=== PATIENT | female | born 1980 | race American Indian/Alaskan Native ===

== ENCOUNTER 2019-11-06 17:23 | Emergency (ER) | payer SELFPAY ==
[2019-11-06 18:17] VITALS: BP 129/78
[2019-11-06 18:43] LABS: Basophils % (Auto) 0.4 % (0.0-1.8); Eosinophils # (Auto) 0.1 K/mm3 (0.0-0.4); Eosinophils % (Auto) 1.3 % (0.0-4.3); Hematocrit 29.4 % (30.3-42.9); Hemoglobin 9.5 gm/dl (10.1-14.3); Lymphocytes # (Auto) 1.8 K/mm3 (1.2-5.4); Lymphocytes % (Auto) 23.7 % (13.4-35.0); Mean Corpuscular HGB Conc 32 % (30-34); Mean Corpuscular Volume 72 fl (79-97); Monocytes # (Auto) 0.7 K/mm3 (0.0-0.8); Monocytes % (Auto) 8.7 % (0.0-7.3); Platelet Count 352 K/mm3 (140-440); Red Cell Distribution Width 19.8 % (13.2-15.2)
[2019-11-06 19:00] LABS: Alanine Aminotransferase 14 units/L (7-56); Albumin 3.7 g/dL (3.9-5); Blood Urea Nitrogen 7 mg/dL (7-17); Calcium 8.6 mg/dL (8.4-10.2); Hemolysis Index 2
[2019-11-06 19:03] LABS: BUN/Creatinine Ratio 10
--- NOTE | 2019-11-06 20:32 | Emergency Department Report ---
ED Female HPI - General Chief complaint: Vaginal Bleeding Stated complaint: HEAVY BLEEDING Time Seen by Provider: 11/06/19 20:16 Source: patient Mode of arrival: Ambulatory Limitations: No Limitations - History of Present Illness Initial comments: 39-year-old -[place] female presents to the emergency room for heavy vaginal bleeding since Saturday. Patient states that she is passing blood clots today. Patient reports that she is currently on control of Levora patient denies any abdominal pain no urinary urgency or frequency. MD Complaint: vaginal bleeding Onset/Timin -: days(s) Are you Now?: No Last Menstrual Period: 11/02/19 EDC: 08/08/20 Associated Symptoms: denies other symptoms - Related Data Allergies Allergy/AdvReac Type Severity Reaction Status Date / Time No Known Allergies Allergy Unverified 11/06/19 18:16 ED Review of Systems ROS: Stated complaint: HEAVY BLEEDING Other details as noted in HPI Comment: All other systems reviewed and negative ED Past Medical Hx - Past Medical History Previous Medical History?: No - Surgical History Past Surgical History?: No - Social History Smoking Status: Never Smoker ED Physical Exam - General Limitations: No Limitations General appearance: alert, in no apparent distress - Head Head exam: Present: atraumatic, normocephalic - Eye Eye exam: Present: normal appearance - ENT ENT exam: Present: mucous membranes moist - Neck Neck exam: Present: normal inspection, full ROM - Back Exam Back exam: Present: normal inspection, full ROM - Neurological Exam Neurological exam: Present: alert, oriented X3 - Psychiatric Psychiatric exam: Present: normal affect, normal mood - Skin Skin exam: Present: warm, dry, intact, normal color. Absent: rash ED Course Vital Signs 11/06/19 18:12 Temperature 98.8 F Pulse Rate 78 Respiratory 18 Rate Blood Pressure 129/78 O2 Sat by Pulse 99 Oximetry ED Medical Decision Making - Lab Data Result diagrams: 11/06/19 18:27 11/06/19 18:27 - Medical Decision Making 39-year-old -[place] female presents to the emergency room for heavy vaginal bleeding since Saturday. Patient states that she is passing blood clots today. Patient reports that she is currently on control of Levora patient denies any abdominal pain no urinary urgency or frequency. Patient has a stable H&H. Discussed with patient she needs to follow-up with the [facility]ING MACHINE TENDER I will refer her to [facility]. I did recommend [id number] multivitamins with iron. Patient verbalized understanding Critical care attestation.: If time is entered above; I have spent that time in minutes in the direct care o f this critically ill patient, excluding procedure time. ED Disposition Clinical Impression: Menorrhagia with regular cycle Anemia Qualifiers: Anemia type: iron deficiency Iron deficiency anemia type: chronic blood loss Qualified Code(s): D50.0 - Iron deficiency anemia secondary to blood loss (chronic) Disposition: TO HOME OR SELFCARE Is pt being admited?: No Does the pt Need Aspirin: No Condition: Stable Instructions: Menorrhagia (ED) Additional Instructions: Continue with your control. Recommend multivitamin with iron for women. Follow-up with a C[facility]ING MACHINE TENDER. I have listed several below for your convenience. Referrals: PRIMARY CARE [Primary Care Provider] - 3-5 Days [facility] [Provider Group] - 3-5 Days [facility] [place] [Outside] - 3-5 Days Forms: Work/School Release Form(ED)
== END 2019-11-06 20:49 | disposition home or self-care (01) ==
LOC: ED 17:23
DX: N92.0 Excessive and frequent menstruation with regular cycle (principal); D64.89 Other specified anemias
CPT/HCPCS: 36415; 80053; 85025; 99283

== ENCOUNTER 2020-09-07 10:18 | Observation (INO) | payer SELFPAY ==
--- NOTE | 2020-09-07 11:01 | Emergency Department Report ---
HPI - General Chief Complaint: Dizziness Time Seen by Provider: 09/07/20 10:31 - HPI HPI: Room 20 The patient is a 40-year-old female present with chief complaint of near syncope. 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 Patient subsequently went down to minimize and a coworker saw her to help her up to sit down in a chair. Patient states she never lost consciousness. Patient states she had an episode of nausea vomiting and her dizziness subsided after 10 minutes. Patient denied ever having palpitations or chest pain. Patient admits to feeling some shortness of breath constantly for the past 2 months after being diagnosed with Covid. Patient denies cough or fever or history of diarrhea. 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 Patient states the symptoms last approximately 10 minutes and then resolved. The patient states she did not go to the hospital. Patient currently denies symptoms The patient states for the past 4 months she has had heavy cycles lasting approximately 2 weeks each time. Patient states she goes through approximately 6-10 pads per day during her cycles. ED Past Medical Hx - Past Medical History Previous Medical History?: No - Surgical History Past Surgical History?: No - Family History Family history: no significant - Social History Smoking Status: Never Smoker Substance Use Type: None (Denies illicit drug use) ED Review of Systems ROS: Stated complaint: SYNCOPE Other details as noted in HPI Constitutional: diaphoresis Eyes: denies: eye pain ENT: denies: throat pain Respiratory: shortness of breath. denies: cough Cardiovascular: denies: chest pain, palpitations Endocrine: no symptoms reported Gastrointestinal: nausea, vomiting. denies: abdominal pain Genitourinary: denies: dysuria Musculoskeletal: denies: back pain Neurological: denies: headache Physical Exam - Physical Exam Vital Signs: Vital Signs 09/07/20 10:33 Temperature 98.2 F Pulse Rate 71 Respiratory 18 Rate Blood Pressure 105/56 [Left] O2 Sat by Pulse 100 Oximetry Physical Exam: GENERAL: The patient is well-developed well-nourished female lying on stretcher not appearing to be in acute distress. [] HEENT: Normocephalic. Atraumatic. Extraocular motions are intact. Patient has moist mucous membranes. NECK: Supple. Trachea midline CHEST/LUNGS: Clear to auscultation. There is no respiratory distress noted. HEART/CARDIOVASCULAR: Regular. There is no tachycardia. There is no gallop rub or murmur. ABDOMEN: Abdomen is soft, nontender. Patient has normal bowel sounds. There is no abdominal distention. SKIN: There is no rash. There is no edema. There is no diaphoresis. NEURO: The patient is awake, alert, and oriented. The patient is cooperative. The patient has no focal neurologic deficits. The patient has normal speech. Cranial nerves II through XII grossly intact. GCS 15 MUSCULOSKELETAL: There is no evidence of acute injury. ED Course Vital Signs 09/07/20 10:33 Temperature 98.2 F Pulse Rate 71 Respiratory 18 Rate Blood Pressure 105/56 [Left] O2 Sat by Pulse 100 Oximetry - Consultations Consultation #1: 09/07/20 13:28 [employer] ATTENDANT paged 09/07/20 13:[address] Panda- will give info to Dr. Leon for consultation ED Medical Decision Making - Lab Data Result diagrams: 09/07/20 11:12 09/07/20 11:12 Laboratory Tests 09/07/20 09/07/20 09/07/20 10:45 11:12 11:12 WBC 5.6 RBC 2.68 L Hgb 3.8 L* Hct 14.1 L* MCV 53 L MCH 14 L MCHC 27 L RDW 22.7 H Plt Count 523 H D-Dimer 737.93 H Sodium Potassium Chloride Carbon Dioxide Anion Gap BUN Creatinine Estimated GFR BUN/Creatinine Ratio Glucose POC Glucose 113 H Calcium Magnesium Total Bilirubin AST ALT Alkaline Phosphatase Total Creatine Kinase CK-MB (CK-2) CK-MB (CK-2) Rel Index Troponin T NT-Pro-B Natriuret Pep Total Protein Albumin Albumin/Globulin Ratio TSH Free T4 HCG, Qual 09/07/20 09/07/20 09/07/20 11:12 11:12 11:12 WBC RBC Hgb Hct MCV MCH MCHC RDW Plt Count D-Dimer Sodium 138 Potassium 4.3 Chloride 103.9 Carbon Dioxide 21 L Anion Gap 17 BUN 9 Creatinine 0.5 L Estimated GFR > 60 BUN/Creatinine Ratio 18 Glucose 114 H POC Glucose Calcium 8.9 Magnesium 2.20 Total Bilirubin 0.70 AST 16 ALT < 5 L Alkaline Phosphatase 55 Total Creatine Kinase 70 CK-MB (CK-2) < 1.0 CK-MB (CK-2) Rel Index 1.4 Troponin T < 0.010 NT-Pro-B Natriuret Pep Total Protein 6.2 L Albumin 3.7 L Albumin/Globulin Ratio 1.5 TSH 0.878 Free T4 1.14 HCG, Qual Negative 09/07/20 11:12 WBC RBC Hgb Hct MCV MCH MCHC RDW Plt Count D-Dimer Sodium Potassium Chloride Carbon Dioxide Anion Gap BUN Creatinine Estimated GFR BUN/Creatinine Ratio Glucose POC Glucose Calcium Magnesium Total Bilirubin AST ALT Alkaline Phosphatase Total Creatine Kinase CK-MB (CK-2) CK-MB (CK-2) Rel Index Troponin T NT-Pro-B Natriuret Pep 151.8 Total Protein Albumin Albumin/Globulin Ratio TSH Free T4 HCG, Qual - EKG Data -: EKG Interpreted by Dc EKG shows normal: sinus rhythm Rate: normal - EKG Data When compared to previous EKG there are: previous EKG unavailable Interpretation: other (No ischemic changes seen) - Radiology Data Radiology results: report reviewed (Pelvic ultrasound, CT head), image reviewed (Pelvic ultrasound, CT head) [facility] [address] [place] [address] Ultrasound Report Signed Patient: LUCINDA VALENTIN MR#: [id number] 5 : 1980 Acct:[id number] Age/Sex: 40 / F ADM Date: 09/07/20 Loc: ED Attending Dr: Ordering Physician: HAMLET LINTON MD Date of Service: 09/07/20 Procedure(s): US transvaginal Accession Number(s): [id number] cc: HAMLET LINTON MD ULTRASOUND PELVIS COMPLETE ULTRASOUND TRANSVAGINAL INDICATION / CLINICAL INFORMATION: Dysfunctional uterine bleeding. TECHNIQUE: Transabdominal and Transvaginal. Duplex Color Doppler used: Yes. COMPARISON: None available FINDINGS: UTERUS: Present. - Appearance (if present): The uterus is retroverted and mildly enlarged. There appears to be a large heterogeneous submucosal fibroid in the anterior wall measuring up to 5.3 cm. - Size in cm (if present): 11.0 x 6.0 x 6.8. - Endometrial Complex (if present): The endometrium appears atrophic measuring 2-3 mm. The endometrial stripe is displaced posteriorly by the assumed large fibroid. - Additional findings: None. RIGHT ADNEXA: The right ovary measures 4.1 x 2.8 x 4.1 cm and contains a 2.6 cm simple appearing cyst. Normal color Doppler blood flow. LEFT ADNEXA: The left ovary is unremarkable measuring 5.4 x 1.5 x 2.8 cm. Normal color Doppler blood flow. URINARY BLADDER: No significant abnormality. FREE FLUID: There is a mild degree of free pelvic fluid in the cul-de-sac. ADDITIONAL FINDINGS: None. IMPRESSION: Large submucosal uterine fibroid is suspected in the anterior wall as described. The endometrium appears atrophic. 2.6 cm right ovarian cyst. Signer Name: Yifan Yang Jr, MD Signed: 09/07/2020 1:14 PM Workstation Name: [id number] Transcribed By: TTR Dictated By: YIFAN YAGN JR, MD Electronically Authenticated By: YIFAN YANG JR, MD Signed Date/Time: 09/07/20 1314 DD/ 1309 TD/TT: Print Cancel [facility] [address] [id number] Cat Scan Report Signed Patient: LUCINDA VALENTIN MR#: [id number] 5 : 1980 Acct:[id number] Age/Sex: 40 / F ADM Date: 09/07/20 Loc: ED Attending Dr: Ordering Physician: HAMLET LINTON MD Date of Service: 09/07/20 Procedure(s): CT head/brain wo con Accession Number(s): [id number] cc: HAMLET LINTON MD CT BRAIN: 09/07/2020 INDICATION / CLINICAL INFORMATION: Near syncope. COMPARISON: None available. FINDINGS: BRAIN/INTRACRANIAL STRUCTURES: Unenhanced CT images of the brain demonstrate no evidence of acute intracranial abnormality. Ventricles and sulci are normal in size and shape. There is no evidence of acute large vessel territory ischemic injury, hemorrhage, or mass. There are no abnormal extra- axial fluid collections. Incidental note is made of a 6 mm lucency in the right parietal. Ventricular white matter, most consistent with a prominent perivascula r space. I would consider this to be of unlikely clinical significance. EXTRACRANIAL STRUCTURES: Unremarkable. IMPRESSION: No acute abnormality. All CT scans at this location are performed using dose reduction to ALARA by means of automated exposure control. Signer Name: Tony Stearns MD Signed: 09/07/2020 12:08 PM Workstation Name: [id number] Transcribed By: RYAN Dictated By: Tony Stearns MD Electronically Authenticated By: Tony Stearns MD Signed Date/Time: 09/07/20 1208 DD/ 1206 TD/TT: Print Cancel - Differential Diagnosis Symptomatic anemia, dysrhythmia, PE, ACS, electrolyte imbalance, hypothyroi Critical care attestation.: If time is entered above; I have spent that time in minutes in the direct care of this critically ill patient, excluding procedure time. ED Disposition Clinical Impression: Symptomatic anemia, Dysfunctional uterine bleeding, Near syncope Disposition: OP ADMIT IP TO THIS HOSP Is pt being admited?: Yes Does the pt Need Aspirin: No Condition: Fair Time of Disposition: 13:38 (Hospitalist notified (Dr. Duarte))
[2020-09-07 11:53] LABS: Mean Corpuscular HGB Conc 27 % (30-34); Platelet Count 523 K/mm3 (140-440); Red Blood Count 2.68 M/mm3 (3.65-5.03)
[2020-09-07 11:56] LABS: Hematocrit 14.1 % (30.3-42.9); Hemoglobin 3.8 gm/dl (10.1-14.3); Mean Corpuscular Volume 53 fl (79-97); Red Cell Distribution Width 22.7 % (13.2-15.2)
[2020-09-07] MEDS ORDERED: SODIUM CHLORIDE 0.9% 500 ML 500 ML IV ONE (12:03)
--- NOTE | 2020-09-07 12:13 | Cat Scan Report ---
CT BRAIN: 09/07/2020 INDICATION / CLINICAL INFORMATION: Near syncope. COMPARISON: None available. FINDINGS: BRAIN/INTRACRANIAL STRUCTURES: Unenhanced CT images of the brain demonstrate no evidence of acute int racranial abnormality. Ventricles and sulci are normal in size and shape. There is no evidence of acute large vessel territory ischemic injury, hemorrhage, or mass. There are no abnormal extra-axial fluid collections. Incidental note is made of a 6 mm lucency in the right parietal. Ventricular white matter, most consi stent with a prominent perivascular space. I would consider this to be of unlikely clinical significa nce. EXTRACRANIAL STRUCTURES: Unremarkable. IMPRESSION: No acute abnormality. All CT scans at this location are performed using dose reduction to ALARA by means of automated expos ure control. Signer Name: Tony Stearns MD Signed: 09/07/2020 12:08 PM Workstation Name: [id number]
[2020-09-07 12:23] LABS: Albumin 3.7 g/dL (3.9-5); Blood Urea Nitrogen 9 mg/dL (7-17); Calcium 8.9 mg/dL (8.4-10.2); Hemolysis Index 0
[2020-09-07 12:27] LABS: Free T4 (Free Thyroxine) 1.14 ng/dL (0.76-1.46)
[2020-09-07 12:30] LABS: Alanine Aminotransferase < 5 units/L (7-56); BUN/Creatinine Ratio 18; Creatine Kinase MB < 1.0 ng/mL (0.0-4.0)
--- NOTE | 2020-09-07 13:18 | Ultrasound Report ---
ULTRASOUND PELVIS COMPLETE ULTRASOUND TRANSVAGINAL INDICATION / CLINICAL INFORMATION: Dysfunctional uterine bleeding. TECHNIQUE: Transabdominal and Transvaginal. Duplex Color Doppler used: Yes. COMPARISON: None available FINDINGS: UTERUS: Present. - Appearance (if present): The uterus is retroverted and mildly enlarged. There appears to be a large heterogeneous submucosal fibroid in the anterior wall measuring up to 5.3 cm. - Size in cm (if present): 11.0 x 6.0 x 6.8. - Endometrial Complex (if present): The endometrium appears atrophic measuring 2-3 mm. The endometria l stripe is displaced posteriorly by the assumed large fibroid. - Additional findings: None. RIGHT ADNEXA: The right ovary measures 4.1 x 2.8 x 4.1 cm and contains a 2.6 cm simple appearing cyst . Normal color Doppler blood flow. LEFT ADNEXA: The left ovary is unremarkable measuring 5.4 x 1.5 x 2.8 cm. Normal color Doppler blood flow. URINARY BLADDER: No significant abnormality. FREE FLUID: There is a mild degree of free pelvic fluid in the cul-de-sac. ADDITIONAL FINDINGS: None. IMPRESSION: Large submucosal uterine fibroid is suspected in the anterior wall as described. The endometrium appears atrophic. 2.6 cm right ovarian cyst. Signer Name: Yifan Yang Jr, MD Signed: 09/07/2020 1:14 PM Workstation Name: [id number]
[2020-09-07] MEDS ORDERED: oxyCODONE /ACETAMINOPHEN 5-325MG TAB PO PRN (13:46)
--- NOTE | 2020-09-07 13:46 | History and Physical Report ---
History of Present Illness Chief complaint: I have almost passed out at work and I feel weak History of present illness: 40 YO Female with Menorrhagia, Obesity presents to ED for evaluation. Patient reports "I feel weak and I almost passed out". Patient states that she was in her usual state of health and while at work she began to feel dizzy and lightheaded while standing and cleaning. Patient states that she sat down in a chair due to her dizziness. EMS was notified and upon arrival the patient was found to be in distress and subsequently transported to [facility] for further care and evaluation of the aforementioned symptoms. The patient was seen and evaluated in the emergency department. All lab and imaging studies reviewed. Patient found to have a hemoglobin of 3 with symptoms consistent with symptomatic anemia suspected secondary to menorrhagia. Patient placed in observation status and admitted to medical floor and treated with packed red blood cell transfusion. MANAGER OFFICE team consulted in ED for further care and evaluation. Patient acknowledges generalized weakness but denies fever, chills, chest pain, palpitation, productive cough, skin rash, or recent ill contacts. Patient recovered from coronavirus infection 2 months ago. No prior admission for review. No medication listed at time of admission reconciliation. Past History Past Medical History: other (See HPI) Past Surgical History: No surgical history, Other (Reviewed) Social history: single. denies: smoking, alcohol abuse, prescription drug abuse Family history: hypertension Medications and Allergies Allergies Allergy/AdvReac Type Severity Reaction Status Date / Time No Known Allergies Allergy Unverified 11/06/19 18:16 Review of Systems Constitutional: weakness, no weight loss, no weight gain, no fever, no chills Ears, nose, mouth and throat: no ear pain, no tinnitis, no decreased hearing, no nasal congestion, no nasal discharge Breasts: no change in shape Cardiovascular: no chest pain, no palpitations, no rapid/irregular heart beat, no shortness of breath Respiratory: no cough, no shortness of breath, no dyspnea on exertion Gastrointestinal: no abdominal pain, no nausea, no vomiting, no diarrhea, no constipation, no change in bowel habits, no hematemesis, no coffee ground emesis Genitourinary Female: menorrhagia, no pelvic pain, no dysuria, no urinary freque ncy, no urgency Rectal: no pain, no incontinence, no bleeding Musculoskeletal: no neck stiffness, no neck pain, no arm numbness/tingling, no low back pain, no shooting leg pain, no leg numbness/tingling Integumentary: no rash, no pruritis, no redness, no sores, no wounds, no jaundice Neurological: no head injury, no transient paralysis, no weakness, no numbness, no tingling, no seizures, no syncope Psychiatric: no anxiety, no change in sleep habits, no sleep disturbances, no hypersomnia, no change in appetite, no change in libido, no disorientation Endocrine: no cold intolerance, no heat intolerance, no polydipsia, no polyuria, no nocturia, no excessive sweating Hematologic/Lymphatic: no easy bruising, no easy bleeding, no lymphedema Allergic/Immunologic: no urticaria, no allergic rhinitis, no wheezing, no persistent infections, no anaphylaxis Exam - Constitutional Vitals: Temp Pulse Resp BP Pulse Ox 98.2 F 71 18 105/56 100 09/07/20 10:33 09/07/20 10:33 09/07/20 10:33 09/07/20 10:33 09/07/20 10:33 General appearance: Present: mild distress - EENT Eyes: Present: PERRL (Conjunctival pallor) ENT: hearing intact, clear oral mucosa - Neck Neck: Present: supple, normal ROM - Respiratory Respiratory effort: normal Respiratory: bilateral: CTA - Cardiovascular Heart Sounds: Present: S1 & S2. Absent: rub, click - Extremities Extremities: pulses symmetrical, No edema Peripheral Pulses: within normal limits - Abdominal General gastrointestinal: Present: soft, non-tender, non-distended, normal bowel sounds Female genitourinary: Present: normal - Integumentary Integumentary: Present: dry, pale, decreased turgor - Musculoskeletal Musculoskeletal: gait normal, strength equal bilaterally - Psychiatric Psychiatric: appropriate mood/affect, intact judgment & insight - Neurologic Neurologic: CNII-XII intact, moves all extremities HEART Score - HEART Score Troponin: Troponin T < 0.010 ng/mL (0.00-0.029) 09/07/20 11:12 Results - Labs CBC & Chem 7: 09/07/20 11:12 09/07/20 11:12 Labs: Abnormal lab results 09/07/20 09/07/20 09/07/20 Range/Units 10:45 11:12 11:12 RBC 2.68 L (3.65-5.03) M/mm3 Hgb 3.8 L* (10.1-14.3) gm/dl Hct 14.1 L* (30.3-42.9) % MCV 53 L (79-97) fl MCH 14 L (28-32) pg MCHC 27 L (30-34) % RDW 22.7 H (13.2-15.2) % Plt Count 523 H (140-440) K/mm3 D-Dimer 737.93 H (0-234) ng/mlDDU Carbon Dioxide (22-30) mmol/L Creatinine (0.6-1.2) mg/dL Glucose (65-100) mg/dL POC Glucose 113 H (70-105) mg/dL ALT (7-56) units/L Total Protein (6.3-8.2) g/dL Albumin (3.9-5) g/dL / Range/Units 11:12 RBC (3.65-5.03) M/mm3 Hgb (10.1-14.3) gm/dl Hct (30.3-42.9) % MCV (79-97) fl MCH (28-32) pg MCHC (30-34) % RDW (13.2-15.2) % Plt Count (140-440) K/mm3 D-Dimer (0-234) ng/mlDDU Carbon Dioxide 21 L (22-30) mmol/L Creatinine 0.5 L (0.6-1.2) mg/dL Glucose 114 H (65-100) mg/dL POC Glucose (70-105) mg/dL ALT < 5 L (7-56) units/L Total Protein 6.2 L (6.3-8.2) g/dL Albumin 3.7 L (3.9-5) g/dL Assessment and Plan - Patient Problems (1) Menorrhagia Current Visit: Yes Status: Acute Qualifiers: Menorrhagia type: with regular cycle Qualified Code(s): N92.0 - Excessive and frequent menstruation with regular cycle Plan to address problem: Supportive care, gynecology team consulted in ED. (2) Symptomatic anemia Current Visit: Yes Status: Acute Plan to address problem: CBC, packed red blood cell transfusion, supportive care, repeat CBC in a.m. (3) DVT prophylaxis Current Visit: Yes Status: Acute Plan to address problem: SCD to bilateral lower extremities while in bed, patient is ambulatory
[2020-09-07] MEDS ORDERED: SODIUM CHLORIDE 0.9% 500 ML 500 ML IV NR (13:48)
[2020-09-07] MEDS ORDERED: ONDANSETRON 4 MG/2 ML INJ IV PRN (14:00)
[2020-09-07] MEDS ORDERED: HYDROmorphone 1 MG/1 ML INJ IV PRN (14:00)
[2020-09-07] MEDS ORDERED: ACETAMINOPHEN 325 MG TAB PO PRN (14:00)
--- NOTE | 2020-09-07 14:09 | XRay Report ---
CHEST 1 VIEW 09/07/2020 2:00 PM INDICATION / CLINICAL INFORMATION: Shortness of breath. COMPARISON: None available. FINDINGS: SUPPORT DEVICES: None. HEART / MEDIASTINUM: Moderate cardiomegaly. LUNGS / PLEURA: No significant pulmonary or pleural abnormality. No pneumothorax. ADDITIONAL FINDINGS: No significant additional findings. IMPRESSION: No acute abnormality. Signer Name: Chucho Chang MD Signed: 09/07/2020 2:05 PM Workstation Name: [id number]
[2020-09-07 15:07] LABS: Total Cells Counted 100
[2020-09-07 15:08] LABS: Anisocytosis 3+; Hypochromasia 3+; Platelet Estimate Consistent w Auto; Tear Drop Cells 1+
[2020-09-07] MEDS ORDERED: ALBUTEROL 2.5 MG/3 ML NEBU IH PRN (16:00)
[2020-09-07] MEDS: FERROUS SULFATE 325 MG TAB PO SCH ×2 (16:17→21:56)
[2020-09-07] MEDS ORDERED: SODIUM CHLORIDE 0.9% 500 ML IVPB IV ONE (21:02)
[2020-09-07] MEDS: FAMOTIDINE 10 MG TAB PO SCH (21:56)
[2020-09-08] MEDS: FAMOTIDINE 10 MG TAB PO SCH (09:16)
[2020-09-08] MEDS: FERROUS SULFATE 325 MG TAB PO SCH ×3 (09:19→20:52)
[2020-09-08 10:03] LABS: Mean Corpuscular HGB Conc 31 % (30-34); Platelet Count 440 K/mm3 (140-440); Red Blood Count 3.05 M/mm3 (3.65-5.03)
[2020-09-08 10:11] LABS: Hematocrit 18.9 % (30.3-42.9); Hemoglobin 5.8 gm/dl (10.1-14.3); Mean Corpuscular Volume 62 fl (79-97); Red Cell Distribution Width 34.7 % (13.2-15.2)
--- NOTE | 2020-09-08 10:35 | Consultation ---
History of Present Illness Consult date: 09/08/20 Reason for consult: menorrhagia History of present illness: This is a 40-year-old female 3 para 1 who presented to the emergency department with a near syncopal episode. Her history is significant for menorrhagia that started approximately a year ago has become progressively worse. Patient states she bleeds heavy for 1-2 out of 5 days every month. Twice this year she has bled for 2 weeks in which she saturated a pad an hour. Evaluation in the emergency department revealed a hemoglobin of 3.8 as well as a submucosal fibroid. She is admitted for blood transfusion. She is not currently bleeding. 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 denies: smoking, alcohol abuse, prescription drug abuse, IV drug use - Obstetrical History : 3 Para: 1 Hx # Term Pregnancies: 1 Induced : 2 Medications and Allergies Allergies Allergy/AdvReac Type Severity Reaction Status Date / Time No Known Allergies Allergy Unverified 11/06/19 18:16 Home Medications Medication Instructions Recorded Confirmed Last Taken Type Ferrous Sulfate [Feosol 325 MG tab] 325 mg PO TID #90 tablet 09/08/20 Unknown Rx Active Meds: Active Medications Acetaminophen (Acetaminophen 325 Mg Tab) 650 mg PO Q4H PRN PRN Reason: Pain MILD(1-3)/Fever >100.5/[place] Albuterol (Albuterol 2.5 Mg/3 Ml Nebu) 2.5 mg IH Q4HRT PRN PRN Reason: Shortness Of Breath Famotidine (Famotidine 10 Mg Tab) 10 mg PO BID [facility] Last Admin: 09/08/20 09:16 Dose: 10 mg Documented by: Ferrous Sulfate (Ferrous Sulfate 325 Mg Tab) 325 mg PO TID [facility] Last Admin: 09/08/20 09:19 Dose: 325 mg Documented by: Hydromorphone HCl (Hydromorphone 1 Mg/1 Ml Inj) 0.5 mg IV Q12H PRN PRN Reason: Pain , Severe (7-10) Ondansetron HCl (Ondansetron 4 Mg/2 Ml Inj) 4 mg IV Q8H PRN PRN Reason: Nausea And Vomiting Oxycodone/Acetaminophen (Oxycodone /Acetaminophen 5-325mg Tab) 1 tab PO Q12H PRN PRN Reason: Pain, Moderate (4-6) Sodium Chloride (Sodium Chloride 0.9% 10 Ml Flush Syringe) 10 ml IV BID [place] Last Admin: 09/08/20 09:19 Dose: 10 ml Documented by: Sodium Chloride (Sodium Chloride 0.9% 10 Ml Flush Syringe) 10 ml IV PRN PRN PRN Reason: LINE FLUSH - Vital Signs Vital signs: Vital Signs Pulse Resp Pulse Ox 78 21 100 09/07/20 10:32 09/07/20 10:32 09/07/20 10:32 Temp Pulse Resp BP Pulse Ox 99.2 F 55 L 18 110/51 99 09/07/20 23:07 09/08/20 03:26 09/08/20 03:08 09/08/20 03:08 09/08/20 03:26 - Physical Exam Breasts: Positive: deferred Abdomen: Positive: normal appearance, soft Results Result Diagrams: 09/08/20 09:34 09/07/20 11:12 Abnormal lab results 09/07/20 09/07/20 09/07/20 Range/Units 10:45 11:12 11:12 RBC 2.68 L (3.65-5.03) M/mm3 Hgb 3.8 L* (10.1-14.3) gm/dl Hct 14.1 L* (30.3-42.9) % MCV 53 L (79-97) fl MCH 14 L (28-32) pg MCHC 27 L (30-34) % RDW 22.7 H (13.2-15.2) % Plt Count 523 H (140-440) K/mm3 Seg Neuts % (Manual) 83.0 H (40.0-70.0) % Lymphocytes % (Manual) 13.0 L (13.4-35.0) % Nucleated RBC % 1.0 H (0.0-0.9) % Lymphocytes # (Manual) 0.7 L (1.2-5.4) K/mm3 D-Dimer 737.93 H (0-234) ng/mlDDU Carbon Dioxide (22-30) mmol/L Creatinine (0.6-1.2) mg/dL Glucose (65-100) mg/dL POC Glucose 113 H (70-105) mg/dL ALT (7-56) units/L Total Protein (6.3-8.2) g/dL Albumin (3.9-5) g/dL Crossmatch 09/07/20 09/07/20 09/08/20 Range/Units 11:12 13:18 09:34 RBC 3.05 L (3.65-5.03) M/mm3 Hgb 5.8 L* (10.1-14.3) gm/dl Hct 18.9 L* (30.3-42.9) % MCV 62 L (79-97) fl MCH 19 L (28-32) pg MCHC (30-34) % RDW 34.7 H (13.2-15.2) % Plt Count (140-440) K/mm3 Seg Neuts % (Manual) (40.0-70.0) % Lymphocytes % (Manual) (13.4-35.0) % Nucleated RBC % (0.0-0.9) % Lymphocytes # (Manual) (1.2-5.4) K/mm3 D-Dimer (0-234) ng/mlDDU Carbon Dioxide 21 L (22-30) mmol/L Creatinine 0.5 L (0.6-1.2) mg/dL Glucose 114 H (65-100) mg/dL POC Glucose (70-105) mg/dL ALT < 5 L (7-56) units/L Total Protein 6.2 L (6.3-8.2) g/dL Albumin 3.7 L (3.9-5) g/dL Crossmatch See Detail All other labs normal. Ultrasound: report reviewed Assessment and Plan - Patient Problems (1) Menorrhagia Current Visit: Yes Status: Chronic Qualifiers: Menorrhagia type: with regular cycle Qualified Code(s): N92.0 - Excessive and frequent menstruation with regular cycle Plan to address problem: Patient denies bleeding at this time. Will start Lysteda, prescription sent from my office computer. Ultrasound findings were discussed with patient and limitations of medical therapy were emphasized. Encouraged to follow-up in our office to complete her evaluation and to determine best mode of treatment to prevent recurrence of severe anemia. Patient voiced understanding and agrees with plan of care. We will sign off at this time. (2) Fibroids, submucosal Current Visit: Yes Status: Chronic (3) Near syncope Current Visit: Yes Status: Acute (4) Symptomatic anemia Current Visit: Yes Status: Acute
--- NOTE | 2020-09-08 11:51 | Discharge Summary ---
Providers - Providers Date of Admission: 09/07/20 13:46 Attending physician: LOW JAIMES MD 09/07/20 13:35 Consult to Physician [CONS] Urgent Comment: Consulting Provider: CORDELL SALINAS Physician Instructions: Reason For Exam: Symptomatic anemia, dysfunctional uterine bleeding Primary care physician: DETECTIVE Hospitalization Reason for admission: Symptomatic anemia Condition: Fair Hospital course: 40 YO Female with Menorrhagia, Obesity presents to ED for evaluation. Patient reports "I feel weak and I almost passed out". Patient states that she was in her usual state of health and while at work she began to feel dizzy and lightheaded while standing and cleaning. Patient states that she sat down in a chair due to her dizziness. EMS was notified and upon arrival the patient was found to be in distress and subsequently transported to [facility] for further care and evaluation of the aforementioned symptoms. The patient was seen and evaluated in the emergency department. All lab and imaging studies reviewed. Patient found to have a hemoglobin of 3 with symptoms consistent with symptomatic anemia suspected secondary to menorrhagia. Patient placed in observation status and admitted to medical floor and treated with packed red blood cell transfusion. MEDICAL ATTENDANT team consulted in ED for further care and evaluation. Patient acknowledges generalized weakness but denies fever, chills, chest pain, palpitation, productive cough, skin rash, or recent ill contacts. Patient recovered from coronavirus infection 2 months ago. No prior admission for review. No medication listed at time of admission reconciliation. Patient seen and examined this morning doing well she does get 4 units of packed red blood cell with improvement of hemoglobin to 5.8 will give additional 2 units and recheck of hemoglobin prior to discharge. She was seen by MEDICAL ATTENDANT who will follow up with her in the office. No procedure planned at this time. (1) Menorrhagia Current Visit: Yes Status: Acute Qualifiers: Menorrhagia type: with regular cycle Qualified Code(s): N92.0 - Excessive and frequent menstruation with regular cycle Plan to address problem: Supportive care, gynecology team consulted in ED. (2) Symptomatic anemia Current Visit: Yes Status: Acute Plan to address problem: CBC, packed red blood cell transfusion, supportive care, repeat CBC in a.m. (3) Fibroids, submucosal Current Visit: Yes Status: Chronic (4) Near syncope Current Visit: Yes Status: Acute Disposition: TO HOME OR SELFCARE Final Discharge Diagnosis (Prints w/discharge instructions): Symptomatic anemia with menorrhagia Time spent for discharge: 35 mins Core Measure Documentation - Palliative Care Palliative Care/ Comfort Measures: Not Applicable - Core Measures Any of the following diagnoses?: none Exam - Physical Exam Narrative exam: VITAL SIGNS: Reviewed. GENERAL: The patient appears normally developed, Vital signs as documented. HEAD: No signs of head trauma. EYES: Pupils are equal. Extraocular motions intact. EARS: Hearing grossly intact. MOUTH: Oropharynx is normal. NECK: No adenopathy, no JVD. CHEST: Chest with clear breath sounds bilaterally. No wheezes, rales, or rhonchi. CARDIAC: Regular rate and rhythm. S1 and S2, without murmurs, gallops, or rubs. VASCULAR: No Edema. Peripheral pulses normal and equal in all extremities. ABDOMEN: Soft, non tender and non distended. No rebound or guarding, and no masses palpated. Bowel Sounds normal. MUSCULOSKELETAL: Good range of motion of all major joints. Extremities without clubbing, cyanosis or edema. NEUROLOGIC EXAM: Alert and oriented x 3 No focal sensory or strength deficits. Speech normal. Follows commands. PSYCHIATRIC: Mood normal. SKIN: detail exam as documented in skin assessment - Constitutional Vitals: Temp Pulse Resp BP Pulse Ox 98.5 F 57 L 16 99/39 100 09/08/20 11:10 09/08/20 11:10 09/08/20 11:10 09/08/20 11:10 09/08/20 11:10 Plan Activity: advance as tolerated, fall precautions Diet: low fat Wound: per your surgeon's advice Plan of Treatment: Avoid NSAIDs until seen by MEDICAL ATTENDANT Follow up with: CORDELL SALINAS MD [Staff Physician] - 7 Days PRIMARY CARE, [Primary Care Provider] - 3-5 Days Prescriptions: Ferrous Sulfate [Feosol 325 MG tab] 325 mg PO TID #90 tablet
--- NOTE | 2020-09-08 12:24 | Electrocardiograph Report ---
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
[2020-09-08 13:00] LABS: Anisocytosis 3+; Hypochromasia 3+; Platelet Estimate Consistent w Auto; Target Cells 1+; Tear Drop Cells 1+; Total Cells Counted 100
--- NOTE | 2020-09-08 13:41 | Cat Scan Report ---
CTA CHEST WITH IV CONTRAST INDICATION: shortness of breath 100 ml omni 350 . TECHNIQUE: Axial CT images were obtained through the chest after injection of IV contrast. 3 plane MIP reconstru ctions were produced. All CT scans at this location are performed using CT dose reduction for ALARA b y means of automated exposure control. COMPARISON: None available. FINDINGS: Pulmonary Arteries: No pulmonary emboli. Thoracic Aorta: No acute abnormality. Heart: Cardiomegaly. Lungs: There is mild mosaic attenuation in the lungs which could be due to small vessel or small airw ays disease. There is atelectasis in the left lung base. Pleura: No pleural effusion. No pneumothorax. Lymph Nodes: No significant adenopathy. Additional Findings: None. Upper Abdomen: No acute findings. Skeletal Structures: No significant osseous abnormality. IMPRESSION: 1. No CT evidence for pulmonary embolism. 2. Mild mosaic attenuation in the lungs could be seen in the setting of mild small airways or small v essel disease. No consolidation. 3. Cardiomegaly. Signer Name: Ronald Ashby MD Signed: 09/08/2020 1:36 PM Workstation Name: [id number]
[2020-09-08] MEDS ORDERED: SODIUM CHLORIDE 0.9% 500 ML 500 ML ONE (14:12)
[2020-09-08 18:52] LABS: Hematocrit 22.5 % (30.3-42.9); Hemoglobin 6.8 gm/dl (10.1-14.3)
[2020-09-09] MEDS: FAMOTIDINE 10 MG TAB PO SCH ×2 (00:06→09:28)
[2020-09-09 08:23] LABS: Hematocrit 20.5 % (30.3-42.9); Hemoglobin 6.6 gm/dl (10.1-14.3); Mean Corpuscular HGB Conc 32 % (30-34); Platelet Count 404 K/mm3 (140-440); Red Blood Count 3.19 M/mm3 (3.65-5.03)
[2020-09-09 08:24] LABS: Mean Corpuscular Volume 64 fl (79-97); Red Cell Distribution Width 36.1 % (13.2-15.2)
--- NOTE | 2020-09-09 08:45 | Progress Note ---
Hospitalist Physical - Constitutional Vitals: Temp Pulse Resp BP Pulse Ox 98.8 F 57 L 16 107/54 100 09/09/20 05:23 09/09/20 05:23 09/09/20 05:23 09/09/20 05:23 09/09/20 07:51 General appearance: Present: mild distress HEART Score - HEART Score Troponin: Troponin T < 0.010 ng/mL (0.00-0.029) 09/07/20 11:12 Results - Labs CBC & Chem 7: 09/09/20 07:37 09/07/20 11:12 Labs: Laboratory Last Values WBC 7.8 K/mm3 (4.5-11.0) 09/09/20 07:37 RBC 3.19 M/mm3 (3.65-5.03) L 09/09/20 07:37 Hgb 6.6 gm/dl (10.1-14.3) L 09/09/20 07:37 Hct 20.5 % (30.3-42.9) L 09/09/20 07:37 MCV 64 fl (79-97) L 09/09/20 07:37 MCH 21 pg (28-32) L 09/09/20 07:37 MCHC 32 % (30-34) 09/09/20 07:37 RDW 36.1 % (13.2-15.2) H 09/09/20 07:37 Plt Count 404 K/mm3 (140-440) 09/09/20 07:37 Add Manual Diff Complete 09/08/20 09:34 Total Counted 100 09/08/20 09:34 Seg Neuts % (Manual) 60.0 % (40.0-70.0) 09/08/20 09:34 Lymphocytes % (Manual) 37.0 % (13.4-35.0) H 09/08/20 09:34 Monocytes % (Manual) 3.0 % (0.0-7.3) 09/08/20 09:34 Nucleated RBC % 1.0 % (0.0-0.9) H 09/08/20 09:34 Seg Neutrophils # Man 3.1 K/mm3 (1.8-7.7) 09/08/20 09:34 Band Neutrophils # 0.0 K/mm3 09/08/20 09:34 Lymphocytes # (Manual) 1.9 K/mm3 (1.2-5.4) 09/08/20 09:34 Abs React Lymphs (Man) 0.0 K/mm3 09/08/20 09:34 Monocytes # (Manual) 0.2 K/mm3 (0.0-0.8) 09/08/20 09:34 Eosinophils # (Manual) 0.0 K/mm3 (0.0-0.4) 09/08/20 09:34 Basophils # (Manual) 0.0 K/mm3 (0.0-0.1) 09/08/20 09:34 Metamyelocytes # 0.0 K/mm3 09/08/20 09:34 Myelocytes # 0.0 K/mm3 09/08/20 09:34 Promyelocytes # 0.0 K/mm3 09/08/20 09:34 Blast Cells # 0.0 K/mm3 09/08/20 09:34 WBC Morphology Not Reportable 09/08/20 09:34 Hypersegmented Neuts Not Reportable 09/08/20 09:34 Hyposegmented Neuts Not Reportable 09/08/20 09:34 Hypogranular Neuts Not Reportable 09/08/20 09:34 Smudge Cells Not Reportable 09/08/20 09:34 Toxic Granulation Not Reportable 09/08/20 09:34 Toxic Vacuolation Not Reportable 09/08/20 09:34 Dohle Bodies Not Reportable 09/08/20 09:34 Pelger-Huet Anomaly Not Reportable 09/08/20 09:34 Alaina Rods Not Reportable 09/08/20 09:34 Platelet Estimate Consistent w auto 09/08/20 09:34 Clumped Platelets Not Reportable 09/08/20 09:34 Plt Clumps, EDTA Not Reportable 09/08/20 09:34 Large Platelets Not Reportable 09/08/20 09:34 Giant Platelets Not Reportable 09/08/20 09:34 Platelet Satelliting Not Reportable 09/08/20 09:34 Plt Morphology Comment Not Reportable 09/08/20 09:34 RBC Morphology Not Reportable 09/08/20 09:34 Dimorphic RBCs Not Reportable 09/08/20 09:34 Polychromasia Not Reportable 09/08/20 09:34 Hypochromasia 3+ 09/08/20 09:34 Poikilocytosis Not Reportable 09/08/20 09:34 Anisocytosis 3+ 09/08/20 09:34 Microcytosis 2+ 09/08/20 09:34 Macrocytosis Not Reportable 09/08/20 09:34 Spherocytes Not Reportable 09/08/20 09:34 Pappenheimer Bodies Not Reportable 09/08/20 09:34 Sickle Cells Not Reportable 09/08/20 09:34 Target Cells 1+ 09/08/20 09:34 Tear Drop Cells 1+ 09/08/20 09:34 Ovalocytes Not Reportable 09/08/20 09:34 Helmet Cells Not Reportable 09/08/20 09:34 Barajas-Jemison Bodies Not Reportable 09/08/20 09:34 Orrtanna Rings Not Reportable 09/08/20 09:34 Talent Cells Not Reportable 09/08/20 09:34 Bite Cells Not Reportable 09/08/20 09:34 Crenated Cell Not Reportable 09/08/20 09:34 Elliptocytes Not Reportable 09/08/20 09:34 Acanthocytes (Spur) Not Reportable 09/08/20 09:34 Rouleaux Not Reportable 09/08/20 09:34 Hemoglobin C Crystals Not Reportable 09/08/20 09:34 Schistocytes Not Reportable 09/08/20 09:34 Malaria parasites Not Reportable 09/08/20 09:34 [place] Bodies Not Reportable 09/08/20 09:34 Hem Pathologist Commnt No 09/08/20 09:34 D-Dimer 737.93 ng/mlDDU (0-234) H 09/07/20 11:12 Sodium 138 mmol/L (137-145) 09/07/20 11:12 Potassium 4.3 mmol/L (3.6-5.0) 09/07/20 11:12 Chloride 103.9 mmol/L (98-107) 09/07/20 11:12 Carbon Dioxide 21 mmol/L (22-30) L 09/07/20 11:12 Anion Gap 17 mmol/L 09/07/20 11:12 BUN 9 mg/dL (7-17) 09/07/20 11:12 Creatinine 0.5 mg/dL (0.6-1.2) L 09/07/20 11:12 Estimated GFR > 60 ml/min 09/07/20 11:12 BUN/Creatinine Ratio 18 % 09/07/20 11:12 Glucose 114 mg/dL (65-100) H 09/07/20 11:12 POC Glucose 77 mg/dL (70-105) 09/09/20 08:10 Calcium 8.9 mg/dL (8.4-10.2) 09/07/20 11:12 Magnesium 2.20 mg/dL (1.7-2.3) 09/07/20 11:12 Total Bilirubin 0.70 mg/dL (0.1-1.2) 09/07/20 11:12 AST 16 units/L (5-40) 09/07/20 11:12 ALT < 5 units/L (7-56) L 09/07/20 11:12 Alkaline Phosphatase 55 units/L (35-129) 09/07/20 11:12 Total Creatine Kinase 70 units/L (30-135) 09/07/20 11:12 CK-MB (CK-2) < 1.0 ng/mL (0.0-4.0) 09/07/20 11:12 CK-MB (CK-2) Rel Index 1.4 (0-4) 09/07/20 11:12 Troponin T < 0.010 ng/mL (0.00-0.029) 09/07/20 11:12 NT-Pro-B Natriuret Pep 151.8 pg/mL (0-450) 09/07/20 11:12 Total Protein 6.2 g/dL (6.3-8.2) L 09/07/20 11:12 Albumin 3.7 g/dL (3.9-5) L 09/07/20 11:12 Albumin/Globulin Ratio 1.5 % 09/07/20 11:12 TSH 0.878 mlU/mL (0.270-4.200) 09/07/20 11:12 Free T4 1.14 ng/dL (0.76-1.46) 09/07/20 11:12 HCG, Qual Negative (Negative) 09/07/20 13:18 Blood Type O POSITIVE 09/07/20 13:18 Antibody Screen Negative 09/07/20 13:18 Crossmatch See Detail 09/07/20 13:18 Elliott/IV: Voiding Method Toilet Active Medications - Current Medications Current Medications: Generic Name Dose Route Start Last Admin Trade Name Freq PRN Reason Stop Dose Admin Acetaminophen 650 mg 09/07/20 14:00 Acetaminophen 325 Mg Tab PO Q4H PRN Pain MILD(1-3)/Fever >100.5/[place] Albuterol 2.5 mg 09/07/20 16:00 Albuterol 2.5 Mg/3 Ml Nebu IH Q4HRT PRN Shortness Of Breath Famotidine 10 mg 09/07/20 22:00 09/09/20 00:06 Famotidine 10 Mg Tab PO 10 mg BID [place] Administration Ferrous Sulfate 325 mg 09/07/20 14:00 09/08/20 20:52 Ferrous Sulfate 325 Mg Tab PO 325 mg TID MILTON Administration Hydromorphone HCl 0.5 mg 09/07/20 14:00 Hydromorphone 1 Mg/1 Ml Inj IV Q12H PRN Pain , Severe (7-10) Ondansetron HCl 4 mg 09/07/20 14:00 Ondansetron 4 Mg/2 Ml Inj IV Q8H PRN Nausea And Vomiting Oxycodone/Acetaminophen 1 tab 09/07/20 13:46 Oxycodone /Acetaminophen 5-325mg Tab PO Q12H PRN Pain, Moderate (4-6) Sodium Chloride 10 ml 09/07/20 22:00 09/09/20 00:36 Sodium Chloride 0.9% 10 Ml Flush Syringe IV 10 ml BID MILTON Administration Sodium Chloride 10 ml 09/07/20 14:00 Sodium Chloride 0.9% 10 Ml Flush Syringe IV PRN PRN LINE FLUSH
[2020-09-09] MEDS ORDERED: SODIUM CHLORIDE 0.9% 500 ML 500 ML ONE (09:23)
[2020-09-09] MEDS: FERROUS SULFATE 325 MG TAB PO SCH ×2 (09:28→13:23)
[2020-09-09 10:50] LABS: Anisocytosis 3+; Band Neutrophils # (Manual) 0.1 K/mm3; Hypochromasia 2+; Platelet Estimate Consistent w Auto; Total Cells Counted 100
--- NOTE | 2020-09-09 12:48 | Discharge Summary ---
Providers - Providers Date of Admission: 09/07/20 13:46 Attending physician: LOW JAIMES MD 09/07/20 13:35 Consult to Physician [CONS] Urgent Comment: Consulting Provider: CORDELL SALINAS Physician Instructions: Reason For Exam: Symptomatic anemia, dysfunctional uterine bleeding Primary care physician: MEMBER OF PARLIAMENT Hospitalization Reason for admission: Syncope Condition: Fair Hospital course: 40 YO Female with Menorrhagia, Obesity presents to ED for evaluation. Patient reports "I feel weak and I almost passed out". Patient states that she was in her usual state of health and while at work she began to feel dizzy and lightheaded while standing and cleaning. Patient states that she sat down in a chair due to her dizziness. EMS was notified and upon arrival the patient was found to be in distress and subsequently transported to [facility] for further care and evaluation of the aforementioned symptoms. The patient was seen and evaluated in the emergency department. All lab and imaging studies reviewed. Patient found to have a hemoglobin of 3 with symptoms consistent with symptomatic anemia suspected secondary to menorrhagia. Patient placed in observation status and admitted to medical floor and treated with packed red blood cell transfusion. AFFILIATE MARKETING SPECIALIST team consulted in ED for further care and evaluation. Patient acknowledges generalized weakness but denies fever, chills, chest pain, palpitation, productive cough, skin rash, or recent ill contacts. Patient recovered from coronavirus infection 2 months ago. No prior admission for review. No medication listed at time of admission reconciliation. Patient seen and examined this morning doing well she does get 4 units of packed red blood cell with improvement of hemoglobin to 5.8 will give additional 2 units and recheck of hemoglobin prior to discharge. She was seen by AFFILIATE MARKETING SPECIALIST who will follow up with her in the office. No procedure planned at this time. Patient was planned for discharge yesterday but repeat hemoglobin was 6.8 and this morning 6.6. She is being transfused 1 more unit prior to discharge as she still little short of breath but states significant improvement compared to admission. She understands the importance of following up outpatient as discussed. (1) Menorrhagia Current Visit: Yes Status: Acute Qualifiers: Menorrhagia type: with regular cycle Qualified Code(s): N92.0 - Excessive and frequent menstruation with regular cycle Plan to address problem: Supportive care, gynecology team consulted in ED. (2) Symptomatic anemia Current Visit: Yes Status: Acute Plan to address problem: CBC, packed red blood cell transfusion, supportive care, repeat CBC in a.m. (3) Fibroids, submucosal Current Visit: Yes Status: Chronic (4) Near syncope Current Visit: Yes Status: Acute Disposition: DC-01 TO HOME OR SELFCARE Final Discharge Diagnosis (Prints w/discharge instructions): Symptomatic anemia with menorrhagia Time spent for discharge: 35-minute Core Measure Documentation - Palliative Care Palliative Care/ Comfort Measures: Not Applicable - Core Measures Any of the following diagnoses?: none Exam - Physical Exam Narrative exam: VITAL SIGNS: Reviewed. GENERAL: The patient appears normally developed, Vital signs as documented. HEAD: No signs of head trauma. EYES: Pupils are equal. Extraocular motions intact. EARS: Hearing grossly intact. MOUTH: Oropharynx is normal. NECK: No adenopathy, no JVD. CHEST: Chest with clear breath sounds bilaterally. No wheezes, rales, or rho nchi. CARDIAC: Regular rate and rhythm. S1 and S2, without murmurs, gallops, or rubs. VASCULAR: No Edema. Peripheral pulses normal and equal in all extremities. ABDOMEN: Soft, non tender and non distended. No rebound or guarding, and no masses palpated. Bowel Sounds normal. MUSCULOSKELETAL: Good range of motion of all major joints. Extremities without clubbing, cyanosis or edema. NEUROLOGIC EXAM: Alert and oriented x 3 No focal sensory or strength deficits. Speech normal. Follows commands. PSYCHIATRIC: Mood normal. SKIN: detail exam as documented in skin assessment - Constitutional Vitals: Temp Pulse Resp BP Pulse Ox 97.9 F 54 L 14 106/57 100 09/09/20 10:30 09/09/20 10:30 09/09/20 10:30 09/09/20 10:30 09/09/20 10:30 Plan Activity: advance as tolerated, fall precautions Diet: low fat Special Instructions: record daily weights, record daily BP diary Plan of Treatment: Avoid NSAIDs until seen by AFFILIATE MARKETING SPECIALIST Follow up with: CORDELL SALINAS MD [Staff Physician] - 7 Days PRIMARY CARE, [Primary Care Provider] - 3-5 Days Prescriptions: Ferrous Sulfate [Feosol 325 MG tab] 325 mg PO TID #90 tablet
[2020-09-09 14:36] VITALS: BP 109/37
== END 2020-09-09 15:20 | disposition home or self-care (01) ==
LOC: ED 10:18 → 3A 13:46
PROVIDERS: ADMIT Internal Medicine; ATTEND Internal Medicine
DX: N92.0 Excessive and frequent menstruation with regular cycle (principal); D64.9 Anemia, unspecified; N93.8 Other specified abnormal uterine and vaginal bleeding; R55 Syncope and collapse; R42 Dizziness and giddiness; D25.0 Submucous leiomyoma of uterus
CPT/HCPCS: 36415; 36430; 70450; 71045; 71275; 76830; 76856; 80053; 82550; 82553; 82962; 83735; 83880; 84439; 84443; 84484; 84703; 85014; 85018; 85025; 85379; 86850; 86900; 86901; 86920; 93005; 96360; 99285; G0378; J7040; P9016; Q9967; 85007

== ENCOUNTER 2020-10-28 11:04 | Outpatient (CLI) | payer BC ==
--- NOTE | 2020-10-28 17:58 | Mammography Report ---
DIGITAL SCREENING MAMMOGRAM WITH CAD, 10/28/2020 CLINICAL INFORMATION / INDICATION: Routine screening mammography. TECHNIQUE: Digital bilateral 2D mammography was obtained in the craniocaudal and mediolateral obliqu e projections. This examination was interpreted with the benefit of Computer-Aided Detection analysis . COMPARISON: None. This is the patient's first mammogram. FINDINGS: Breast Density: The breasts are heterogeneously dense, which may obscure small masses. No dominant mass, suspicious calcifications, or architectural distortion in either breast. IMPRESSION: No mammographic evidence of malignancy. Follow up recommendation: Routine yearly BI-RADS Category 1: Negative. A "normal" or negative report should not discourage follow up or biopsy of a clinically significant f inding. A written summary of these findings will be mailed to the patient. The patient will be entered into a mammography reporting system which will generate a reminder letter for the patient's next appointmen t at the appropriate interval. The [employer] recommends yearly mammograms starting at age 40 and continuing as l shayy as a woman is in good health. Breast MRI is recommended for women with an approximate 20-25% or greater lifetime risk of breast cancer, including women with a strong family history of breast or ova aung cancer or who have been treated for Hodgkin's disease. Signer Name: Kendy Motta MD Signed: 10/28/2020 5:53 PM Workstation Name: [id number]
== END 2020-10-28 11:05 | disposition home or self-care (01) ==
LOC: SPVWC 11:04
PROVIDERS: ATTEND Obstetrics & Gynecology
DX: Z12.31 Encounter for screening mammogram for malignant neoplasm of breast (principal)
CPT/HCPCS: 77067